=== PATIENT | female | born 1995 | race Caucasian/White ===

== ENCOUNTER 2024-03-17 08:56 | Emergency (ER) | payer OTHER ==
[~2024-03-17] VITALS: Ht 165.1 cm; Wt 56.7 kg
[2024-03-17 10:15] VITALS: BP 119/81; TEMP 97.9; O2SAT 99
== END 2024-03-17 10:16 | disposition home or self-care (01) ==
LOC: ER 09:11
DX: R07.89 Other chest pain (principal); E87.6 Hypokalemia; Z88.0 Allergy status to penicillin; V43.52XA Car driver injured in collision with other type car in traffic accident, initial encounter; Y93.89 Activity, other specified; Y92.410 Unspecified street and highway as the place of occurrence of the external cause; Y99.8 Other external cause status